=== PATIENT | female | born 1985 | race Caucasian/White ===

== ENCOUNTER 2020-09-08 07:25 | Inpatient (IN) | payer OTHER ==
[2020-09-08 08:50] VITALS: BMI 29.0
[2020-09-08] MEDS ORDERED: CITRIC ACID/SODIUM CITRATE 30 ML UNIT-DOSE CUP PO ONE (09:24)
[2020-09-08] MEDS ORDERED: morphine SULFATE/PF 0.5 MG/ML (2cc Syringe - QUVA) EP ONE (09:28)
[2020-09-08] MEDS ORDERED: ONDANSETRON 4 MG/2 ML VIAL IVPUSH PRN (09:28)
[2020-09-08] MEDS ORDERED: ELECTROLYTE-148 SOLN 1,000 ML IV SCH (09:30)
--- NOTE | 2020-09-08 09:33 | HP ---
Past Medical History - Primary Care Physician PCP:: Cuong Ball - Admission Chief Complaint: 39 weeks, previous c/s, voluntary sterlization. chronic HTN History of Present Illness: 34 yo f with 2 previous c/s and CHTN , admitted for repeat c/s and BTL . risks associated with repeat c/s and BTL discussed . aware BTL is permanent and not reversible, has small failure and ectopic risks History Source: Patient Limitations to Obtaining History: No Limitations - Past Medical History Cardiovascular: Yes: HTN ...: 3 ...Para: 2 ...Term: 2 ...: 0 ...Spon : 0 ...Induced : 0 ...Living Children: 2 ...Multiple Gestation: 0 ...LMP: 12/11/19 ... Weeks Gestation by Dates: 38.6 ...EDC by Dates: 09/16/20 ...EDC by Sono: 09/16/20 - Past Surgical History Past Surgical History: Yes: (c/section 02/17, & 11/19) Hx Myomectomy: No Hx Transabdominal Cerclage: No - Smoking History Smoking history: Never smoked - Alcohol/Substance Use Hx Alcohol Use: No History of Substance Use: reports: None - Social History Usual Living Arrangement: Yes: With Spouse Home Medications - Allergies Allergies/Adverse Reactions: Allergies Allergy/AdvReac Type Severity Reaction Status Date / Time Penicillins Allergy Intermediate Hives Verified 09/08/20 08:50 - Home Medications Home Medications: Ambulatory Orders Labetalol HCl [Normodyne -] 200 mg PO DAILY 09/08/20 Vitamins (Sjr) - 1 tab PO DAILY 09/08/20 Review of Systems - Review of Systems Constitutional: reports: No Symptoms Eyes: reports: No Symptoms HENT: reports: No Symptoms Neck: reports: No Symptoms Cardiovascular: reports: No Symptoms Respiratory: reports: No Symptoms Gastrointestinal: reports: No Symptoms Genitourinary: reports: No Symptoms Breasts: reports: No Symptoms Reported Musculoskeletal: reports: No Symptoms Integumentary: reports: No Symptoms Neurological: reports: No Symptoms Endocrine: reports: No Symptoms Hematology/Lymphatic: reports: No Symptoms Psychiatric: reports: No Symptoms Physical Exam - Maternity Constitutional: Yes: Well Nourished, No Distress, Calm Eyes: Yes: WNL, Conjunctiva Clear, EOM Intact HENT: Yes: WNL, Atraumatic, Normocephalic Neck: Yes: WNL, Supple, Trachea Midline Cardiovascular: Yes: WNL, Regular Rate and Rhythm Breast(s): Yes: WNL - Abdominal Exam/OB Fundal Height: 40 Number of Fetuses: Single Presentation: Vertex Contractions: No Intensity: Unaware Monitor Mode: External Heart Rate Location: [facility] Category: I Accelerations: Non-Uniform Decelerations: None - Vaginal Exam/OB Vaginal Bleeding: No Speculum Exam: No Dilatation (cm): closed Effacement (%): 0 Amniotic Membrane Status: Intact Presentation: Vertex/Position Station: -3 - Physical Exam Musculoskeletal: Yes: WNL Extremities: Yes: WNL Edema: Yes Edema: LLE: Trace, RLE: Trace Deep Tendon Reflex Grade: Normal +2 Psychiatric: Yes: WNL Hemorrhage Risk Assessment - Risk Factors Medium Risk Factors: Yes: Prior , uterine surgery,or multiple laparotomies Risk Score: 1 Risk Level: Medium Risk Problem List - Problems (1) with 39 completed weeks gestation Code(s): Z3A.39 - 39 WEEKS GESTATION OF (2) Previous section complicating Code(s): O34.219 - MATERNAL CARE FOR UNSP TYPE SCAR FROM PREVIOUS DEL (3) Chronic hypertension affecting Code(s): O10.919 - UNSP PRE-EXISTING HTN COMP , UNSP TRIMESTER (4) Sterilization Code(s): Z30.2 - ENCOUNTER FOR STERILIZATION Assessment/Plan admit monitor bp fhm repeat c/s and BTL DVT PHX
[2020-09-08] MEDS: LABETALOL HCL 200 MG TABLET (FP) PO SCH (10:00)
[2020-09-08] MEDS ORDERED: morphine SULFATE/PF 0.5 MG/ML (2cc Syringe - QUVA) ONE (10:22)
[2020-09-08] MEDS ORDERED: PHENYLEPHRINE HCL 10 MG/1 ML SINGLE DOSE VIAL ONE (10:36)
[2020-09-08] MEDS ORDERED: CLINDAMYCIN PHOSPHATE 600 MG/4 ML VIAL ONE (10:38)
[2020-09-08] MEDS ORDERED: OXYTOCIN 10 UNITS/ML VIAL ONE (10:50)
[2020-09-08] MEDS ORDERED: OXYTOCIN 20 UNITS in 0.9% NS 20 UNIT/1,000 ML INFUS.BAG IV ONE ×2 (11:22→13:35)
[2020-09-08] MEDS ORDERED: oxyCODONE HCL 5 MG TABLET PO PRN ×2 (12:15)
[2020-09-08] MEDS ORDERED: diphenhydrAMINE HCL 25 MG CAPSULE (FP) PO PRN (12:15)
[2020-09-08] MEDS ORDERED: METHYLERGONOVINE MALEATE 0.2 MG/1 ML AMP IM PRN (12:15)
[2020-09-08] MEDS ORDERED: WITCH HAZEL 50% (TUCKS) 40 PAD/JAR PAD TP PRN (12:15)
[2020-09-08] MEDS ORDERED: BENZOCAINE 28 GM HEMORRHOIDAL OINTMENT RC PRN (12:15)
[2020-09-08] MEDS ORDERED: OXYTOCIN 20 UNITS in 0.9% NS 20 UNIT/1,000 ML INFUS.BAG IV SCH (12:15)
[2020-09-08] MEDS ORDERED: BENZOCAINE 20% 57 GM BOTTLE TP PRN (12:15)
[2020-09-08] MEDS ORDERED: DEXTROSE 5%-LACTATED RINGERS 1,000 ML IV SCH (12:15)
--- NOTE | 2020-09-08 12:22 | OP ---
Operative Note - Note: Operative Date: 09/08/20 Pre-Operative Diagnosis: [id number] weeks, CHTN , previous c/s , sterlization Operation: repeat LST c/s, BTL Findings: live baby girl, LOT ,,apgar9/9, clear fluid Surgeon: Cuong Ball Rolloff Driver: Tiburcio Castellanos Anesthesiologist/WINDOW ASSEMBLER: Jason Oliveira Anesthesia: Spinal Specimens Removed: placenta, portion of Rt, LT fallopian tube , rt partubal cyst Estimated Blood Loss (mls): 500 Drains & Tubes with Location: gupta Blood Volume Replaced (mls): 0 Operative Report Dictated: Yes
[2020-09-08] MEDS ORDERED: IBUPROFEN 800 MG/8 ML IJ IVPB ONE (13:34)
[2020-09-08] MEDS: IBUPROFEN 800 MG/8 ML IJ IVPB PRN ×2 (13:50→22:25)
[2020-09-08] MEDS: CLINDAMYCIN 600MG PREMIX IVPB 600 MG/50 ML BAG IVPB SCH (17:59)
[2020-09-09] MEDS: CLINDAMYCIN 600MG PREMIX IVPB 600 MG/50 ML BAG IVPB SCH ×2 (01:02→09:19)
[2020-09-09 07:33] LABS: BASO % 0.2 % (0-2.0); EOS % 0.6 % (0-4.5); HEMATOCRIT 37.5 % (32.4-45.2); HEMOGLOBIN 12.9 GM/dL (10.7-15.3); LYMPH % 8.4 % (8-40); MCH 29.6 pg (25.7-33.7); MCHC 34.3 g/dl (32.0-36.0); MEAN CELL VOLUME 86.3 fl (80-96); MEAN PLT VOLUME 9.7 fl (7.5-11.1); MONO % 5.9 % (3.8-10.2); NEUT % 84.9 % (42.8-82.8); PLATELET COUNT 166 K/MM3 (134-434); RBC 4.35 M/mm3 (3.60-5.2); RDW 14.4 % (11.6-15.6); WHITE BLOOD COUNT 11.7 K/mm3 (4.0-10.0)
--- NOTE | 2020-09-09 08:18 | PN ---
Post Progress Note - Subjective Subjective: no c/o pain not voided since gupta is taken out no c/o headache Post Day: 1 Type of Delivery: Repeat C/S Vital Signs: Vital Signs Temperature 98.2 F 09/09/20 06:00 Pulse Rate 80 09/09/20 06:00 Respiratory Rate 20 09/09/20 06:00 Blood Pressure 121/79 09/09/20 06:00 O2 Sat by Pulse Oximetry (%) 98 09/08/20 12:30 Breast Exam: Yes: Soft, Other (BF). No: Engorged Uterus: Yes: Fundus Firm, Fundus below umbilicus, Non-tender Incision: Yes: Sutures intact. No: Redness, Oozing Abdomen/GI: Yes: Abdomen soft (bs active ), Tolerating PO (clear liquids). No: Abdominal Distention, Tender, Passing flatus Lochia: Yes: Rubra Lochia, amount: Moderate Extremities: Yes: Calves non-tender Perineum: Yes: Intact Activity: Other (not oob yet) - Labs Labs: CBC WBC 11.7 K/mm3 (4.0-10.0) H 09/09/20 06:50 RBC 4.35 M/mm3 (3.60-5.2) 09/09/20 06:50 Hgb 12.9 GM/dL (10.7-15.3) 09/09/20 06:50 Hct 37.5 % (32.4-45.2) 09/09/20 06:50 MCV 86.3 fl (80-96) 09/09/20 06:50 MCH 29.6 pg (25.7-33.7) 09/09/20 06:50 MCHC 34.3 g/dl (32.0-36.0) 09/09/20 06:50 RDW 14.4 % (11.6-15.6) 09/09/20 06:50 Plt Count 166 K/MM3 (134-434) 09/09/20 06:50 MPV 9.7 fl (7.5-11.1) 09/09/20 06:50 Absolute Neuts (auto) 9.9 K/mm3 (1.5-8.0) H 09/09/20 06:50 Neutrophils % 84.9 % (42.8-82.8) H 09/09/20 06:50 Lymphocytes % 8.4 % (8-40) D 09/09/20 06:50 Monocytes % 5.9 % (3.8-10.2) 09/09/20 06:50 Eosinophils % 0.6 % (0-4.5) 09/09/20 06:50 Basophils % 0.2 % (0-2.0) 09/09/20 06:50 Nucleated RBC % 0 % (0-0) 09/09/20 06:50 Other Findings, Remarks: rs cta i/o 500/1300 Problem List - Problems (1) Status post section routine follow-up Code(s): Z39.2 - ENCOUNTER FOR ROUTINE FOLLOW-UP; Z98.891 - HISTORY OF UTERINE SCAR FROM PREVIOUS SURGERY (2) Chronic hypertension affecting Code(s): O10.919 - UNSP PRE-EXISTING HTN COMP , UNSP TRIMESTER Assessment/Plan post RCS+BTL day#1 stable BP controlled on po labetalol Plan ct po care
--- NOTE | 2020-09-09 09:17 | PN ---
Progress Note (short form) - Note Progress Note: Anesthesia postop note 34 y/o F s/p spinal anesthesia/duramorph for section POD#1, vss, aaox3, sensory motor intact distally, pain well controlled. No anesthesia complications.
[2020-09-09] MEDS: ENOXAPARIN NA (PORCINE) 40 MG/0.4 ML DISP.SYRIN SQ SCH (11:10)
[2020-09-09] MEDS: LABETALOL HCL 200 MG TABLET (FP) PO SCH (11:10)
[2020-09-09] MEDS ORDERED: BISACODYL 10 MG SUPP.RECT PR PRN (12:15)
[2020-09-09] MEDS: SIMETHICONE 80 MG TAB.CHEW (FP) PO PRN ×2 (12:51→23:55)
[2020-09-09] MEDS: IBUPROFEN 600 MG TABLET (FP) PO PRN ×2 (12:52→23:55)
--- NOTE | 2020-09-09 15:28 | OP ---
DATE OF OPERATION: 09/08/2020 PREOPERATIVE DIAGNOSIS: 39 weeks. Previous section. Request of repeat section and tubal ligation. POSTOPERATIVE DIAGNOSIS: 39 weeks. Previous section. Request of repeat section and tubal ligation. PROCEDURE: Repeat low segment transverse section. Bilateral tubal ligation and removal of the right paratubal cyst. SURGEON: Cuong Ball MD COLLECTIONS AGENT: BALDO Epperson ANESTHESIA: Spinal. ANESTHESIOLOGIST: Jason Oliveira MD ESTIMATED BLOOD LOSS: 500 mL FINDINGS: Live baby girl. 9 and 9. ROT position. Clear fluid. DESCRIPTION OF THE PROCEDURE: Patient was taken to the operating room. After adequate spinal anesthesia, abdomen and perineum were prepped and draped. Pfannenstiel abdominal skin incision was made over the previous incision. Abdominal wall was cut layer by layer until the peritoneum was exposed and incised. Upon entry into the abdominal cavity, lower uterine segment was identified and the uterovesical fold of the peritoneum was established, bladder was pushed down. Then with the lower blade of the [place] retractor in the pelvis, low transverse incision was made. Incision extended laterally, amniotic sac was entered, clear fluid. Head delivered from LOT position. The nasopharynx was suctioned and live baby girl was delivered without difficulty. Placenta was delivered manually. Uterine cavity was cleaned of all remaining tissue. The uterine incision was closed in 2 layers, first layer with 0-Biosyn imbricating continuous sutures, the second layer with 0-Biosyn imbricating the first layer. Bladder flap was closed with 0-Vicryl continuous. Both tubes and ovaries were checked and were normal. Then there was a right paratubal ovarian cyst approximately 4 cm. Then the right tube was grasped with Arbon clamp. Right tube was doubly tied with 2-0 and portion of tube was removed and the was cauterized. The same procedure was done for the right tube and there was a paratubal ovarian cyst which was removed by applying a Tanvi clamp at the base of the cyst and removing it with cautery and cauterizing the base. Pelvic cavity was irrigated. No active bleeding was seen. All the lap, sponge, and instrument counts were correct. Both ovaries were normal. Then peritoneum was closed with 0 Biosyn continuous suture. Muscles were brought together with interrupted suture of 0 Biosyn. Fascia was closed with 0 Biosyn continuous suture. Subcutaneous fat with interrupted sutures of 0 Biosyn, and the skin with 3-0 Vicryl subcuticular continuous suture. The patient tolerated the procedure well and left the OR in good condition. Yanci [id number]
[2020-09-09] MEDS: ACETAMINOPHEN 325 MG TABLET (FP) PO PRN (23:55)
[2020-09-10] MEDS: LABETALOL HCL 200 MG TABLET (FP) PO SCH (10:34)
[2020-09-10] MEDS: ACETAMINOPHEN 325 MG TABLET (FP) PO PRN (10:34)
[2020-09-10] MEDS: IBUPROFEN 600 MG TABLET (FP) PO PRN (10:34)
[2020-09-10] MEDS: ENOXAPARIN NA (PORCINE) 40 MG/0.4 ML DISP.SYRIN SQ SCH (10:35)
[2020-09-10] MEDS: SIMETHICONE 80 MG TAB.CHEW (FP) PO PRN (10:35)
--- NOTE | 2020-09-10 12:18 | DS ---
Physical Examination Vital Signs: Vital Signs Temperature 98.3 F 09/10/20 05:47 Pulse Rate 86 09/10/20 05:47 Respiratory Rate 18 09/10/20 05:47 Blood Pressure 116/73 09/10/20 05:47 O2 Sat by Pulse Oximetry (%) 96 09/09/20 18:00 Constitutional: Yes: Well Nourished, No Distress, Calm Eyes: Yes: WNL, Conjunctiva Clear, EOM Intact HENT: Yes: WNL, Atraumatic, Normocephalic Neck: Yes: WNL, Supple, Trachea Midline Cardiovascular: Yes: WNL, Regular Rate and Rhythm Respiratory: Yes: WNL, Regular, CTA Bilaterally Gastrointestinal: Yes: WNL, Normal Bowel Sounds Musculoskeletal: Yes: WNL Extremities: Yes: WNL Edema: No Integumentary: Yes: WNL Neurological: Yes: WNL, Alert, Oriented ...Motor Strength: WNL Psychiatric: Yes: WNL Labs: CBC, BMP 09/09/20 06:50 Discharge Summary Problems reviewed: Yes Reason For Visit: C SECTION Current Active Problems Chronic hypertension affecting (Acute) with 39 completed weeks gestation (Acute) Previous section complicating (Acute) Status post section routine follow-up (Acute) Sterilization (Acute) Procedures: Principal: Repeat and BTL Hospital Course: Patient presented for scheduled RLTCS and BTL She had an uncomplicated course She met all milestones She was discharged home in stable condition on POD#2 per her request Condition: Stable - Instructions Diet, Activity, Other Instructions: Regular Diet Follow up in one week with Dr. Ball for an incision check and blood pressure check Referrals: Cuong Ball MD [Staff Physician] - Disposition: HOME - Home Medications Comprehensive Discharge Medication List: Ambulatory Orders Labetalol HCl [Normodyne -] 200 mg PO DAILY 09/08/20 Vitamins (Sjr) - 1 tab PO DAILY 09/08/20 Blood Pressure Test Kit [Blood Pressure Kit] 1 each MC DAILY 10 Days kit 09/09/20 Breast Pump 1 each MC 5XD 30 Days #1 each 09/09/20 Ferrous Sulfate [Feosol] 325 mg PO DAILY #30 tablet 09/09/20 Ibuprofen 600 mg PO Q6H PRN #30 tablet 09/09/20
[2020-09-10 17:39] VITALS: BP 133/88; PULSE 76; TEMP 98
--- NOTE | 2020-09-10 17:47 | PATH ---
Surgical Pathology Report Patient Name: JOHNNIE [facility]. Rec. #: [id number] /Age/Gender: 1985 (Age: 34) / F Account: [id number] Location: [facility] OBS/SOLE LEVELER Taken: 09/08/2020 Received: 09/09/2020 Reported: 09/10/2020 Physicians: Cuong Ball M.D. Specimen(s) Received A: PLACENTA B: LEFT FALLOPIAN TUBE C: RIGHT FALLOPIAN TUBE AND PARAOVARIAN CYST Clinical History , 38.6 weeks , gestational hypertension Final Diagnosis A. PLACENTA, SECTION: 872 G THIRD TRIMESTER PLACENTA, FOCAL MILD CHRONIC DECIDUITIS WITH PLASMA CELLS, AND TRIVASCULAR UMBILICAL CORD. SEE COMMENT. B. FALLOPIAN TUBE, LEFT, PARTIAL EXCISION: FULL LUMINAL PORTION OF UNREMARKABLE FALLOPIAN TUBE. C. FALLOPIAN TUBE AND PARAOVARIAN CYST, RIGHT, EXCISION: FALLOPIAN TUBE WITH PARATUBAL/PAROVARIAN CYST (INCLUDING FULL LUMINAL PORTION AND FIMBRIATED END). Comment: Part A, The presence of plasma cells raises the possibility of chronic endometritis. Suggest clinical correlation. Electronically Signed Abiola Singh M.D. Gross Description A. The specimen is received fresh labeled "placenta" and is a 872 gram, 21 x 16 x 1.6 cm. placenta with attached membranes and umbilical cord. The attached membranes are clear, translucent with focal opacities, and insert marginally. The umbilical cord measures 38 cm. in length and averages 1.2 cm. in diameter. The cord inserts eccentrically, 6 cm. to the nearest margin. No true knots or strictures are identified. Cut surface of the umbilical cord reveals 3 vessels. The surface is lauren-blue with minimal fibrin deposition and appropriate caliber vessels. The maternal surface is red-brown with focal defects. Sectioning reveals red-brown, spongy parenchyma. No lesions are identified. Television Tube Inspector sections are submitted in three cassettes as follows: 1- membrane rolls and umbilical cord; 2-3- full thickness sections of placenta. B. Received fresh labeled "left fallopian tube" is a pink-johns, portion of fallopian tube measuring 1 cm in length. No fimbria are identified. Sectioning shows an unremarkable lumen. The specimen is submitted in one cassette. C. Received fresh labeled "right fallopian tube and paraovarian cyst" is a right fimbriated fallopian tube measuring 5 cm in length and attached 5 cm in greatest dimension paraovarian cyst. The outer surface of the cyst is johns and smooth. Cysts contain serous fluid. The cyst wall measures 01.cm in thickness, smooth, without any excrescences. Sectioning of the fallopian tube shows an unremarkable lumen. Television Tube Inspector sections are submitted in 3 cassettes as follows: 1- fimbria and cyst wall, 2- additional sections, cyst wall; 3- cross sections of fallopian tube. MLZ/09/09/2020 san09/09/2020
[2020-09-10] MEDS ORDERED: SENNOSIDES/DOCUSATE COMBO (SENNA PLUS) TABLET (UD) PO PRN (22:00)
== END 2020-09-10 13:35 | disposition home or self-care (01) | DRG 540 ==
LOC: JLDR 07:25 → J3W 14:14
PROVIDERS: ADMIT Obstetrics & Gynecology; ATTEND Obstetrics & Gynecology
PROC: 10D00Z1 Extraction of Products of Conception, Low, Open Approach (ICD-10-PCS; principal; 2020-09-08)
PROC: 0UL70ZZ Occlusion of Bilateral Fallopian Tubes, Open Approach (ICD-10-PCS; 2020-09-08)
DX: O34.219 Maternal care for unspecified type scar from previous cesarean delivery (principal); O10.92 Unspecified pre-existing hypertension complicating childbirth; Z3A.39 39 weeks gestation of pregnancy; Z37.0 Single live birth; Z30.2 Encounter for sterilization; Z88.0 Allergy status to penicillin
CPT/HCPCS: 36415; 85025